=== PATIENT | male | born 1950 | race Caucasian/White ===

== ENCOUNTER 2022-01-03 17:58 | Emergency (ER) | payer MEDICARE ==
[2022-01-03 19:24] LABS: HEMATOCRIT 37.7 % (39.0-50.0); HEMOGLOBIN 12.3 g/dl (14.0-18.0); MEAN CELL VOLUME 98.4 fL CALC (80.0-100.0); MEAN CORPUSCULAR HGB 32.1 pG CALC (26.0-32.0); MEAN CORPUSCULAR HGB CONC 32.6 g/dL CAL (32.0-36.0); NEUT# 15.03 thou/uL (1.82-7.42); RED BLOOD COUNT 3.83 mill/uL (4.70-6.10); RED CELL DISTRI WIDTH 15.2 % (11.5-15.5)
[2022-01-03 19:39] LABS: ALBUMIN 3.5 g/dL (3.2-5.0); BILIRUBIN, TOTAL 1.2 mg/dL (0.0-1.4); POTASSIUM 4.3 mmol/l (3.5-5.1); TOTAL PROTEIN 6.2 g/dL (6.3-8.2)
[2022-01-03 19:42] LABS: IMMATURE GRANULOCYTES 1.5 % (0.0-5.0)
[2022-01-03 21:05] LABS: URINE BILIRUBIN - DIPSTICK NEGATIVE (NEGATIVE); URINE BLOOD DIPSTICK TRACE-INTACT (NEGATIVE); URINE COLOR YELLOW; URINE GLUCOSE - DIPSTICK NEGATIVE (NEGATIVE); URINE KETONE TRACE mg/dL (NEGATIVE); URINE LEUK ESTERASE NEGATIVE (NEGATIVE); URINE PH 5.5 (4.5-8.0); URINE PROTEIN - DIPSTICK TRACE mg/dL (NEG-TRACE); URINE UROBILINOGEN - DIPSTICK 0.2 E.U./dL (0.2)
[2022-01-03 21:09] LABS: URINE NITRITE - DIPSTICK NEGATIVE (Negative)
[2022-01-03 22:30] VITALS: BP 90/54
--- NOTE | 2022-01-05 07:54 | NUR ---
PRELIMINARY BLOOD CULTURE RESULTS SENT TO ANJELICA DOWD AT [facility] 03/03 VIALS GROWING GRAM (+) COCCI. FAX # [phone]
--- NOTE | 2022-01-06 08:52 | NUR ---
Spoke to the patient's nurse, Kim, in regards to blood cultures from 01/03/22 being postive for Streptococcus agalcatiae. Faxed culture report to [phone]
== END 2022-01-03 22:35 | disposition short-term general hospital (02) ==
LOC: ED 17:58
PROVIDERS: Family Medicine
DX: D72.829 Elevated white blood cell count, unspecified (principal); R79.89 Other specified abnormal findings of blood chemistry; R50.9 Fever, unspecified; E11.9 Type 2 diabetes mellitus without complications; I10 Essential (primary) hypertension; Z20.822 Contact with and (suspected) exposure to COVID-19; R78.81 Bacteremia

== ENCOUNTER 2022-05-11 11:10 | Inpatient (IN) | payer MEDICARE ==
[2022-05-11] VITALS (74 sets, daily range): BP systolic 62–119; BP diastolic 42–87
[~2022-05-11] VITALS: Ht 182.9 cm; Wt 131.0 kg
[2022-05-11] MEDS ORDERED: ACIDOPHILU4 PO (11:38)
[2022-05-11] MEDS ORDERED: PACERONE200 MG PO (11:41)
[2022-05-11 12:03] LABS: HEMATOCRIT 40.1 % (39.0-50.0); HEMOGLOBIN 12.5 g/dl (14.0-18.0); IMMATURE GRANULOCYTES 0.2 % (0.0-5.0); MEAN CELL VOLUME 97.6 fL CALC (80.0-100.0); MEAN CORPUSCULAR HGB 30.4 pG CALC (26.0-32.0); MEAN CORPUSCULAR HGB CONC 31.2 g/dL CAL (32.0-36.0); NEUT# 3.97 thou/uL (1.82-7.42); RED BLOOD COUNT 4.11 mill/uL (4.70-6.10); RED CELL DISTRI WIDTH 19.8 % (11.5-15.5)
[2022-05-11] MEDS ORDERED: AMOXICILLIN500 MG PO (12:16)
[2022-05-11 12:18] LABS: URINE BILIRUBIN - DIPSTICK NEGATIVE (NEGATIVE); URINE BLOOD DIPSTICK NEGATIVE (NEGATIVE); URINE COLOR YELLOW; URINE GLUCOSE - DIPSTICK NEGATIVE (NEGATIVE); URINE KETONE NEGATIVE (NEGATIVE); URINE LEUK ESTERASE NEGATIVE (NEGATIVE); URINE PH 5.5 (4.5-8.0); URINE PROTEIN - DIPSTICK NEGATIVE (NEG-TRACE); URINE SPECIFIC GRAVITY 1.015; URINE UROBILINOGEN - DIPSTICK 0.2 E.U./dL (0.2)
[2022-05-11 12:18] LABS: ALKALINE PHOSPHATASE 80 u/l (38-126); ANION GAP 14 (6-22 (CALC)); BILIRUBIN, TOTAL 0.6 mg/dL (0.0-1.4); BUN 26 mg/dL (8-23); BUN/CREATININE RATIO 24 (12-20 (CALC)); CARBON DIOXIDE 31 mmol/l (22-30); CHLORIDE 94 mmol/l (95-108); CREATININE 1.1 mg/dL (0.7-1.3); GFR FOR AFR.AMER. > 60 ML/MIN (>=60 (CALC)); GFR OTHER RACES > 60 ML/MIN (>=60 (CALC)); POTASSIUM 4.5 mmol/l (3.5-5.1); SGOT/AST 29 u/l (19-48); SODIUM 134 mmol/l (137-146)
[2022-05-11 12:27] LABS: URINE NITRITE - DIPSTICK NEGATIVE (Negative)
[2022-05-11] MEDS ORDERED: GABAPENTIN100 MG PO (12:27)
[2022-05-11] MEDS ORDERED: ELIQUIS5 MG PO (12:27)
[2022-05-11] MEDS ORDERED: MULTI VIT PO (12:28)
[2022-05-11] MEDS ORDERED: METFORMIN HYDR850 MG PO (12:28)
[2022-05-11] MEDS ORDERED: VITAMIN D2000 UNI1 PO (12:29)
[2022-05-11] MEDS ORDERED: MIDODRINE HYDR2.5 MG PO (12:29)
[2022-05-11] MEDS ORDERED: K-TABS10 MEQ PO (12:29)
[2022-05-11] MEDS ORDERED: LASIX 20 MG TAB20 MG PO (12:30)
[2022-05-11] MEDS ORDERED: METOPROL TAR25 MG PO (12:30)
[2022-05-11] MEDS ORDERED: ALPRAZOLAM1 MG PO (12:31)
[2022-05-11] MEDS ORDERED: LIPITOR20 M1 PO (12:31)
[2022-05-11] MEDS ORDERED: SENNA-TABS8.6 MG PO (12:32)
[2022-05-11] MEDS ORDERED: HYDROCO/APAP1 TA9 PO (12:32)
[2022-05-11] MEDS ORDERED: GABAPENTIN300 M2 (12:32)
[2022-05-11 12:36] LABS: ALBUMIN 3.8 g/dL (3.2-5.0)
[2022-05-12] VITALS (103 sets, daily range): BP systolic 83–128; BP diastolic 48–91
[2022-05-12 03:50] LABS: ACT PARTIAL THROMBO TIME 27.3 SECONDS (20.0-32.5); INTERNATIONAL NORMALIZED RATIO 1.3 RATIO (0.7-1.3)
[2022-05-12 06:01] LABS: ANION GAP 10 (6-22 (CALC)); BUN 23 mg/dL (8-23); BUN/CREATININE RATIO 25 (12-20 (CALC)); CARBON DIOXIDE 30 mmol/l (22-30); CHLORIDE 98 mmol/l (95-108); CREATININE 0.9 mg/dL (0.7-1.3); GFR FOR AFR.AMER. > 60 ML/MIN (>=60 (CALC)); GFR OTHER RACES > 60 ML/MIN (>=60 (CALC)); MAGNESIUM 1.6 mg/dL (1.6-2.3); POTASSIUM 4.6 mmol/l (3.5-5.1); SODIUM 133 mmol/l (137-146)
[2022-05-12 06:15] LABS: HEMATOCRIT 38.2 % (39.0-50.0); MEAN CELL VOLUME 97.2 fL CALC (80.0-100.0); MEAN CORPUSCULAR HGB 30.5 pG CALC (26.0-32.0); MEAN CORPUSCULAR HGB CONC 31.4 g/dL CAL (32.0-36.0); RED BLOOD COUNT 3.93 mill/uL (4.70-6.10); RED CELL DISTRI WIDTH 19.9 % (11.5-15.5)
[2022-05-13] VITALS (74 sets, daily range): BP systolic 60–133; BP diastolic 39–95
[2022-05-13 06:40] LABS: HEMATOCRIT 38.9 % (39.0-50.0); HEMOGLOBIN 12.2 g/dl (14.0-18.0); IMMATURE GRANULOCYTES 0.2 % (0.0-5.0); MEAN CELL VOLUME 96.8 fL CALC (80.0-100.0); MEAN CORPUSCULAR HGB 30.3 pG CALC (26.0-32.0); MEAN CORPUSCULAR HGB CONC 31.4 g/dL CAL (32.0-36.0); NEUT# 3.47 thou/uL (1.82-7.42); RED BLOOD COUNT 4.02 mill/uL (4.70-6.10); RED CELL DISTRI WIDTH 20.1 % (11.5-15.5)
[2022-05-13 07:20] LABS: ALBUMIN 3.3 g/dL (3.2-5.0); ALKALINE PHOSPHATASE 74 u/l (38-126); ANION GAP 13 (6-22 (CALC)); BILIRUBIN, TOTAL 0.5 mg/dL (0.0-1.4); BUN 21 mg/dL (8-23); BUN/CREATININE RATIO 23 (12-20 (CALC)); CARBON DIOXIDE 28 mmol/l (22-30); CHLORIDE 99 mmol/l (95-108); CREATININE 0.9 mg/dL (0.7-1.3); GFR FOR AFR.AMER. > 60 ML/MIN (>=60 (CALC)); GFR OTHER RACES > 60 ML/MIN (>=60 (CALC)); MAGNESIUM 1.7 mg/dL (1.6-2.3); SGOT/AST 22 u/l (19-48); SODIUM 135 mmol/l (137-146); TOTAL PROTEIN 5.1 g/dL (6.3-8.2)
[2022-05-13 20:03] LABS: HEMATOCRIT 33.3 % (39.0-50.0); HEMOGLOBIN 10.4 g/dl (14.0-18.0); IMMATURE GRANULOCYTES 0.1 % (0.0-5.0); MEAN CELL VOLUME 97.7 fL CALC (80.0-100.0); MEAN CORPUSCULAR HGB 30.5 pG CALC (26.0-32.0); MEAN CORPUSCULAR HGB CONC 31.2 g/dL CAL (32.0-36.0); NEUT# 2.29 thou/uL (1.82-7.42); RED BLOOD COUNT 3.41 mill/uL (4.70-6.10); RED CELL DISTRI WIDTH 19.9 % (11.5-15.5)
[2022-05-13 20:27] LABS: ALBUMIN 2.7 g/dL (3.2-5.0); ALKALINE PHOSPHATASE 60 u/l (38-126); ANION GAP 8 (6-22 (CALC)); BILIRUBIN, TOTAL 0.3 mg/dL (0.0-1.4); BUN 20 mg/dL (8-23); BUN/CREATININE RATIO 23 (12-20 (CALC)); CARBON DIOXIDE 32 mmol/l (22-30); CHLORIDE 99 mmol/l (95-108); CREATININE 0.9 mg/dL (0.7-1.3); GFR FOR AFR.AMER. > 60 ML/MIN (>=60 (CALC)); GFR OTHER RACES > 60 ML/MIN (>=60 (CALC)); POTASSIUM 4.4 mmol/l (3.5-5.1); SGOT/AST 30 u/l (19-48); SODIUM 135 mmol/l (137-146); TOTAL PROTEIN 4.6 g/dL (6.3-8.2)
[2022-05-14] VITALS (50 sets, daily range): BP systolic 84–119; BP diastolic 60–83
[2022-05-14 06:34] LABS: ALBUMIN 2.8 g/dL (3.2-5.0); ALKALINE PHOSPHATASE 66 u/l (38-126); ANION GAP 11 (6-22 (CALC)); BUN 19 mg/dL (8-23); BUN/CREATININE RATIO 21 (12-20 (CALC)); CARBON DIOXIDE 29 mmol/l (22-30); CHLORIDE 100 mmol/l (95-108); CREATININE 0.9 mg/dL (0.7-1.3); GFR FOR AFR.AMER. > 60 ML/MIN (>=60 (CALC)); GFR OTHER RACES > 60 ML/MIN (>=60 (CALC)); HEMATOCRIT 34.3 % (39.0-50.0); MAGNESIUM 1.5 mg/dL (1.6-2.3); MEAN CELL VOLUME 95.8 fL CALC (80.0-100.0); MEAN CORPUSCULAR HGB 30.7 pG CALC (26.0-32.0); MEAN CORPUSCULAR HGB CONC 32.1 g/dL CAL (32.0-36.0); POTASSIUM 4.4 mmol/l (3.5-5.1); RED BLOOD COUNT 3.58 mill/uL (4.70-6.10); RED CELL DISTRI WIDTH 20.1 % (11.5-15.5); SGOT/AST 34 u/l (19-48); SODIUM 136 mmol/l (137-146); TOTAL PROTEIN 4.6 g/dL (6.3-8.2)
[2022-05-14 06:35] LABS: BILIRUBIN, TOTAL 0.5 mg/dL (0.0-1.4)
== END 2022-05-14 16:30 | disposition short-term general hospital (02) | DRG 871 ==
LOC: ED 11:10 → ED-I 14:18 → ED 14:30 → ICU 14:31
PROVIDERS: Family Medicine; ADMIT Hospitalist; ATTEND Internal Medicine
PROC: 5A09357 Assistance with Respiratory Ventilation, Less than 24 Consecutive Hours, Continuous Positive Airway Pressure (ICD-10-PCS; principal; 2022-05-13)
PROC: 05H433Z Insertion of Infusion Device into Left Innominate Vein, Percutaneous Approach (ICD-10-PCS; 2022-05-13)
DX: A41.9 Sepsis, unspecified organism (principal); I26.99 Other pulmonary embolism without acute cor pulmonale; J96.01 Acute respiratory failure with hypoxia; G93.40 Encephalopathy, unspecified; I48.19 Other persistent atrial fibrillation; I50.42 Chronic combined systolic (congestive) and diastolic (congestive) heart failure; R65.20 Severe sepsis without septic shock; I95.9 Hypotension, unspecified; I11.0 Hypertensive heart disease with heart failure; E11.9 Type 2 diabetes mellitus without complications; R19.09 Other intra-abdominal and pelvic swelling, mass and lump; I25.10 Atherosclerotic heart disease of native coronary artery without angina pectoris; G47.30 Sleep apnea, unspecified; Z79.84 Long term (current) use of oral hypoglycemic drugs; Z99.81 Dependence on supplemental oxygen; Z95.5 Presence of coronary angioplasty implant and graft; Z95.3 Presence of xenogenic heart valve; Z95.810 Presence of automatic (implantable) cardiac defibrillator; Z79.01 Long term (current) use of anticoagulants; Z20.822 Contact with and (suspected) exposure to COVID-19
CPT/HCPCS: J0692; J1644; J1650; J3475; Q9967